=== PATIENT | female | born 1980 | race African-American/Black ===

== ENCOUNTER 2021-08-08 02:55 | Inpatient (IN) | payer OTHER ==
[2021-08-08] MEDS ORDERED: DEXTROSE 5%-LACTATED RINGERS 1,000 ML IV SCH (03:45)
[2021-08-08] MEDS ORDERED: OXYTOCIN 30 UNITS in 0.9% NS 30 UNIT/500 ML INFUS.BAG IVPB ONE (04:14)
[2021-08-08] MEDS ORDERED: OXYTOCIN 30 UNITS in 0.9% NS 30 UNIT/500 ML INFUS.BAG IVPB SCH (04:45)
[2021-08-08 05:19] LABS: BASO % 0.3 % (0-2.0); EOS % 1.1 % (0-4.5); HEMOGLOBIN 13.1 GM/dL (10.7-15.3); LYMPH % 27.7 % (8-40); MCH 29.3 pg (25.7-33.7); MCHC 33.7 g/dl (32.0-36.0); MEAN CELL VOLUME 86.7 fl (80-96); MEAN PLT VOLUME 9.3 fl (7.5-11.1); MONO % 9.6 % (3.8-10.2); NEUT % 61.3 % (42.8-82.8); PLATELET COUNT 226 10^3/uL (134-434); RBC 4.49 M/mm3 (3.60-5.2); RDW 15.4 % (11.6-15.6); WHITE BLOOD COUNT 8.6 K/mm3 (4.0-10.0)
[2021-08-08 05:25] VITALS: BMI 32.7
[2021-08-08 05:36] LABS: INR 0.89 (0.83-1.09); PROTHROMBIN TIME (PATIENT) 10.4 SEC (9.7-13.0)
[2021-08-08 05:39] LABS: ACTIVATED PTT 27.6 SECONDS (25.2-36.5)
[2021-08-08 05:40] LABS: CALCIUM 8.6 mg/dL (8.5-10.1)
[2021-08-08 05:41] LABS: ALBUMIN 2.8 g/dl (3.4-5.0); BLOOD UREA NITROGEN 7.3 mg/dL (7-18)
[2021-08-08 05:44] LABS: CREATININE 0.5 mg/dL (0.55-1.3)
[2021-08-08 05:45] LABS: BILIRUBIN,TOTAL 0.2 mg/dL (0.2-1); TOT PROT 6.5 g/dl (6.4-8.2)
[2021-08-08] MEDS ORDERED: OXYTOCIN 20 UNITS in 0.9% NS 20 UNIT/1,000 ML INFUS.BAG IV ONE (07:55)
[2021-08-08 09:42] LABS: CORD BASE EXCESS -6.9 mmol/L (0-2); CORD HCO3 19.1 mmHg (20-29); CORD PCO2 40.1 mmHg (30-78); CORD pH 7.296 (7.14-7.44)
[2021-08-08] MEDS ORDERED: BENZOCAINE 28 GM HEMORRHOIDAL OINTMENT TP PRN (10:09)
[2021-08-08] MEDS ORDERED: BENZOCAINE 20% 57 GM BOTTLE TP PRN (10:09)
[2021-08-08] MEDS ORDERED: ACETAMINOPHEN 325 MG TABLET (FP) PO PRN (10:09)
[2021-08-08] MEDS ORDERED: WITCH HAZEL 50% (TUCKS) 40 PAD/JAR PAD TP PRN (10:09)
[2021-08-08] MEDS ORDERED: OXYTOCIN 20 UNITS in 0.9% NS 20 UNIT/1,000 ML INFUS.BAG IV SCH (10:15)
[2021-08-08] MEDS: IBUPROFEN 600 MG TABLET (FP) PO PRN (10:29)
[2021-08-09] MEDS: IBUPROFEN 600 MG TABLET (FP) PO PRN (01:17)
[2021-08-09 08:48] VITALS: BP 107/68; PULSE 76; TEMP 98.1
[2021-08-09 09:00] LABS: BASO % 0.6 % (0-2.0); EOS % 1.6 % (0-4.5); HEMATOCRIT 33.2 % (32.4-45.2); HEMOGLOBIN 11.2 GM/dL (10.7-15.3); LYMPH % 19.2 % (8-40); MCH 29.3 pg (25.7-33.7); MCHC 33.7 g/dl (32.0-36.0); MEAN CELL VOLUME 87.1 fl (80-96); MEAN PLT VOLUME 9.3 fl (7.5-11.1); MONO % 9.5 % (3.8-10.2); NEUT % 69.1 % (42.8-82.8); PLATELET COUNT 203 10^3/uL (134-434); RBC 3.82 M/mm3 (3.60-5.2); RDW 15.1 % (11.6-15.6); WHITE BLOOD COUNT 12.1 K/mm3 (4.0-10.0)
[2021-08-09] MEDS ORDERED: SENNOSIDES/DOCUSATE COMBO (SENNA PLUS) TABLET (UD) PO PRN (22:00)
== END 2021-08-09 14:15 | disposition home or self-care (01) | DRG 560 ==
LOC: JLDR 02:55 → J3W 10:20
PROVIDERS: ADMIT Obstetrics & Gynecology Maternal & Fetal Medicine; ATTEND Obstetrics & Gynecology Maternal & Fetal Medicine
PROC: 10E0XZZ Delivery of Products of Conception, External Approach (ICD-10-PCS; principal; 2021-08-08)
DX: O24.424 Gestational diabetes mellitus in childbirth, insulin controlled (principal); O34.13 Maternal care for benign tumor of corpus uteri, third trimester; D25.9 Leiomyoma of uterus, unspecified; Z3A.38 38 weeks gestation of pregnancy; Z37.0 Single live birth
CPT/HCPCS: 36415; 36600; 59409; 80053; 82803; 82962; 85025; 85610; 85730; 86780; 86850; 86900; 86901; C9803; U0003; U0005